=== PATIENT | female | born 1985 | race Caucasian/White ===

== ENCOUNTER 2019-05-01 10:23 | Emergency (ER) | payer MEDICAID ==
[~2019-05-01] VITALS: Ht 162.6 cm; Wt 59.1 kg
[2019-05-01] MEDS ORDERED: HYDROcodone/acetaminophen 10/325mg tab PO ONE (12:20)
[2019-05-01] MEDS ORDERED: ketorolac trometh. 30mg/ml inj. IM ONE (12:50)
[2019-05-01] MEDS ORDERED: NAPR-56 PO (12:59)
[2019-05-01] MEDS ORDERED: CEPH-572 PO (12:59)
[2019-05-01] MEDS ORDERED: DOXY100C2 PO (13:32)
[2019-05-01 13:45] VITALS: BP 106/64
[2019-05-02] MEDS ORDERED: NO HOME MEDS (10:30)
== END 2019-05-01 13:53 | disposition home or self-care (01) ==
LOC: ER 10:24
DX: L03.114 Cellulitis of left upper limb (principal); M25.532 Pain in left wrist; M25.432 Effusion, left wrist; Z79.2 Long term (current) use of antibiotics; Z79.899 Other long term (current) drug therapy; X58.XXXA Exposure to other specified factors, initial encounter; Y93.89 Activity, other specified; Y92.89 Other specified places as the place of occurrence of the external cause; Y99.8 Other external cause status
CPT/HCPCS: 29125; 73110; 93005; 96372; 99283; J1885

== ENCOUNTER 2019-05-02 08:04 | Inpatient (IN) | payer MEDICAID ==
[~2019-05-02] VITALS: Ht 162.6 cm; Wt 59.1 kg
[~2019-05-02 08:04] MED LIST: DOXY100C2 PO; NAPR-56 PO
[2019-05-02] MEDS ORDERED: piperacillin/tazo 3.375gm/50ml 50 ML IV ONE (08:50)
[2019-05-02] MEDS ORDERED: normal saline 1000ML IV soln IV ONE (08:50)
[2019-05-02 09:58] LABS: BASOPHILS % (AUTO) 0.5 % (0-1); EOSINOPHILS % (AUTO) 0.4 % (0-6); HEMATOCRIT 40.2 % (35.0-45.0); HEMOGLOBIN 13.4 g/dl (12.0-16.0); LYMPHOCYTES # (AUTO) 1.8 X10'3 (1.1-4.8); LYMPHOCYTES % (AUTO) 17.8 % (21-51); MEAN CORPUSCULAR HEMOGLOBIN 31.4 PG (27.0-31.0); MEAN CORPUSCULAR HGB CONC 33.4 g/dL (33.0-36.5); MEAN CORPUSCULAR VOLUME 94.2 FL (78-98); MEAN PLATELET VOLUME 6.5 FL (7.4-10.4); MONOCYTES # (AUTO) 0.9 X10'3 (0-0.9); MONOCYTES % (AUTO) 8.8 % (2-12); NEUTROPHILS # (AUTO) 7.4 X10'3 (1.8-7.7); NEUTROPHILS % (AUTO) 72.5 % (42-75); PLATELET COUNT 285 X10'3 (140-440); RED BLOOD COUNT 4.27 X10'6 (4.20-5.60); RED CELL DISTRIBUTION WIDTH 13.3 % (11.5-14.5); WHITE BLOOD COUNT 10.2 X10'3 (4.5-11.0)
[2019-05-02 10:13] LABS: ALANINE AMINOTRANSFERASE 30 U/L (12-78); ALBUMIN 3.1 G/DL (3.4-5.0); ALBUMIN/GLOBULIN RATIO 0.8 (1.1-1.5); ALKALINE PHOSPHATASE 97 IU/L (46-116); ANION GAP 4 (8-16); ASPARTATE AMINO TRANSFERASE 12 U/L (10-37); BILIRUBIN,TOTAL 0.5 MG/DL (0.1-1.0); BLOOD UREA NITROGEN 7 MG/DL (7-18); BUN/CREATININE RATIO 7.1 (6.6-38.0); CALCIUM 8.7 MG/DL (8.5-10.1); CHLORIDE 108 MMOL/L (99-107); CREATININE 0.98 MG/DL (0.40-0.90); GLUCOSE 116 MG/DL (70-104); POTASSIUM 3.7 MMOL/L (3.5-5.1); SODIUM 142 MMOL/L (135-145); TOTAL CARBON DIOXIDE 29.8 MMOL/L (24-32); eGFR 65 ML/MIN
[2019-05-02] MEDS ORDERED: NO HOME MEDS (10:30)
[2019-05-02] MEDS ORDERED: acetaminophen 325mg tablet PO PRN ×2 (11:35)
[2019-05-02] MEDS ORDERED: magnesium hydroxide 30ml (MOM) UD suspension PO PRN (11:35)
[2019-05-02] MEDS ORDERED: ondansetron/PF 4mg/2ml inj IV PRN (11:35)
[2019-05-02] MEDS ORDERED: mag hydrox/Alum hydrox/simeth 30ml oral suspension PO PRN (11:35)
[2019-05-02] MEDS ORDERED: Melatonin 3mg tablet PO PRN (11:35)
[2019-05-02 13:30] VITALS: BP 112/57
[2019-05-02] MEDS: vancomycin inj. 750 MG in normal saline 250ml IV soln 250 ML IV SCH (14:55)
[2019-05-02 18:00] VITALS: BP 108/70
--- NOTE | 2019-05-02 18:30 | NUR ---
Patient in room [facility]TH[facility] 4021. I have received report from MARCOS LAEN and had the opportunity to ask questions and assume patient care.
[2019-05-02] MEDS: ibuprofen tablet 400 MG TABLET PO PRN (21:49)
[2019-05-02 21:50] LABS: URINE HCG NEGATIVE (NEG)
[2019-05-02 21:51] LABS: CLARITY,URINE CLOUDY (Clear); COLOR,URINE YELLOW (Yellow); GLUCOSE, URINE NEGATIVE (Neg); KETONES,URINE NEGATIVE (Neg); LEUKOCYTE ESTERASE ,URINE SMALL (Neg); NITRITES, URINE NEGATIVE (Neg); OCCULT BLOOD,URINE NEGATIVE (Neg); PROTEIN,URINE NEGATIVE (Neg)
[2019-05-02 21:54] LABS: UA COLLECTION TYPE CLN CATCH MIDSTREAM
[2019-05-02 22:00] VITALS: BP 110/71
[2019-05-02 22:11] LABS: BACTERIA,URINE 1+ /HPF (Neg); RBC,URINE NONE SEEN /HPF (0-2); SQUAMOUS EPITHELIAL CELL,UR MODERATE /LPF (FEW)
[2019-05-02 22:20] LABS: AMORPHOUS PHOSPHATES 3+
[2019-05-02 22:21] LABS: YEAST FEW /HPF (NEGATIVE)
[2019-05-03] MEDS: vancomycin inj. 750 MG in normal saline 250ml IV soln 250 ML IV SCH ×2 (01:13→12:47)
--- NOTE | 2019-05-03 06:24 | NUR ---
Problems reprioritized. Patient report given, questions answered & plan of care reviewed with MARCOS TANG.
[2019-05-03 06:41] VITALS: BP 102/62
[2019-05-03 06:51] LABS: BASOPHILS # (AUTO) 0.1 X10'3 (0-0.2); BASOPHILS % (AUTO) 0.9 % (0-1); EOSINOPHILS # (AUTO) 0.1 X10'3 (0-0.9); EOSINOPHILS % (AUTO) 1.2 % (0-6); HEMATOCRIT 38.4 % (35.0-45.0); HEMOGLOBIN 12.8 g/dl (12.0-16.0); LYMPHOCYTES # (AUTO) 2.5 X10'3 (1.1-4.8); MEAN CORPUSCULAR HEMOGLOBIN 31.3 PG (27.0-31.0); MEAN CORPUSCULAR HGB CONC 33.3 g/dL (33.0-36.5); MONOCYTES # (AUTO) 0.7 X10'3 (0-0.9); MONOCYTES % (AUTO) 7.8 % (2-12); NEUTROPHILS # (AUTO) 5.3 X10'3 (1.8-7.7); NEUTROPHILS % (AUTO) 61.1 % (42-75); PLATELET COUNT 283 X10'3 (140-440); RED BLOOD COUNT 4.09 X10'6 (4.20-5.60); RED CELL DISTRIBUTION WIDTH 13.2 % (11.5-14.5); WHITE BLOOD COUNT 8.6 X10'3 (4.5-11.0)
[2019-05-03 06:54] LABS: ALBUMIN 2.7 G/DL (3.4-5.0); ANION GAP 10 (8-16); BLOOD UREA NITROGEN 7 MG/DL (7-18); CALCIUM 8.6 MG/DL (8.5-10.1); CHLORIDE 108 MMOL/L (99-107); CREATININE 0.78 MG/DL (0.40-0.90); GLUCOSE 87 MG/DL (70-104); POTASSIUM 4.2 MMOL/L (3.5-5.1); SODIUM 142 MMOL/L (135-145); TOTAL CARBON DIOXIDE 24.5 MMOL/L (24-32); eGFR 85 ML/MIN
[2019-05-03] MEDS: ibuprofen tablet 400 MG TABLET PO PRN ×2 (08:28→20:11)
[2019-05-03] MEDS: CITALOpram 10mg tablet PO SCH (08:28)
[2019-05-03] MEDS: CefTRIAXone/D5W-Rocephin 1gm 50 ML IV SCH (08:28)
[2019-05-03 14:34] LABS: URINE HCG NEGATIVE (NEG)
[2019-05-03 14:37] LABS: CLARITY,URINE CLOUDY (Clear); COLOR,URINE YELLOW (Yellow); GLUCOSE, URINE NEGATIVE (Neg); KETONES,URINE NEGATIVE (Neg); LEUKOCYTE ESTERASE ,URINE LARGE (Neg); NITRITES, URINE NEGATIVE (Neg); OCCULT BLOOD,URINE TRACE-INTACT (Neg); PH,URINE 6.5 (4.8-8.0); PROTEIN,URINE NEGATIVE (Neg); UROBILINOGEN,URINE 0.2 E.U/dL (0.2-1.0)
[2019-05-03 14:47] LABS: UA COLLECTION TYPE CLN CATCH MIDSTREAM
[2019-05-03 14:53] LABS: BACTERIA,URINE 2+ /HPF (Neg); MUCUS STRANDS MANY /LPF (Neg); RBC,URINE 0-2 /HPF (0-2); SQUAMOUS EPITHELIAL CELL,UR MANY /LPF (FEW); WBC,URINE TNTC /HPF (0-4)
[2019-05-03 18:00] VITALS: BP 115/70
--- NOTE | 2019-05-03 18:30 | NUR ---
Patient in room ORTHO 4021. I have received report from MARCOS TANG and had the opportunity to ask questions and assume patient care.
[2019-05-03] MEDS: lactobacillus rhamnosus 10,000 MMU CELLS/CAPSULE PO SCH (20:09)
[2019-05-03 22:00] VITALS: BP 106/62
[2019-05-04] MEDS: vancomycin inj. 750 MG in normal saline 250ml IV soln 250 ML IV SCH (00:15)
[2019-05-04] MEDS ORDERED: VANCOMYCIN LEVEL IV ONE (00:30)
[2019-05-04 06:10] VITALS: BP 123/62
--- NOTE | 2019-05-04 06:12 | NUR ---
Problems reprioritized. Patient report given, questions answered & plan of care reviewed with MARCOS SANTOS.
--- NOTE | 2019-05-04 06:30 | NUR ---
Patient in room ORTHO 4021. I have received report from Priscila RODRÍGUEZ and had the opportunity to ask questions and assume patient care.
[2019-05-04 07:02] LABS: BASOPHILS # (AUTO) 0.1 X10'3 (0-0.2); BASOPHILS % (AUTO) 1.1 % (0-1); EOSINOPHILS # (AUTO) 0.1 X10'3 (0-0.9); EOSINOPHILS % (AUTO) 1.2 % (0-6); HEMATOCRIT 39.7 % (35.0-45.0); HEMOGLOBIN 13.2 g/dl (12.0-16.0); LYMPHOCYTES # (AUTO) 2.2 X10'3 (1.1-4.8); LYMPHOCYTES % (AUTO) 24.8 % (21-51); MEAN CORPUSCULAR HEMOGLOBIN 31.1 PG (27.0-31.0); MEAN CORPUSCULAR HGB CONC 33.3 g/dL (33.0-36.5); MEAN CORPUSCULAR VOLUME 93.6 FL (78-98); MEAN PLATELET VOLUME 7.1 FL (7.4-10.4); MONOCYTES # (AUTO) 0.6 X10'3 (0-0.9); MONOCYTES % (AUTO) 7.1 % (2-12); NEUTROPHILS # (AUTO) 5.8 X10'3 (1.8-7.7); NEUTROPHILS % (AUTO) 65.8 % (42-75); PLATELET COUNT 289 X10'3 (140-440); RED BLOOD COUNT 4.24 X10'6 (4.20-5.60); RED CELL DISTRIBUTION WIDTH 12.9 % (11.5-14.5); WHITE BLOOD COUNT 8.8 X10'3 (4.5-11.0)
[2019-05-04 07:33] LABS: ALBUMIN 2.7 G/DL (3.4-5.0); ANION GAP 8 (8-16); BLOOD UREA NITROGEN 8 MG/DL (7-18); BUN/CREATININE RATIO 10.8 (6.6-38.0); CALCIUM 8.3 MG/DL (8.5-10.1); CHLORIDE 108 MMOL/L (99-107); CREATININE 0.74 MG/DL (0.40-0.90); GLUCOSE 83 MG/DL (70-104); POTASSIUM 4.1 MMOL/L (3.5-5.1); SODIUM 141 MMOL/L (135-145); TOTAL CARBON DIOXIDE 24.7 MMOL/L (24-32); eGFR 90 ML/MIN
[2019-05-04] MEDS: CefTRIAXone/D5W-Rocephin 1gm 50 ML IV SCH (08:15)
[2019-05-04] MEDS: lactobacillus rhamnosus 10,000 MMU CELLS/CAPSULE PO SCH (08:16)
[2019-05-04] MEDS: CITALOpram 10mg tablet PO SCH (08:16)
[2019-05-04 10:00] VITALS: BP 105/61
--- NOTE | 2019-05-04 10:58 | NUR ---
Patient very sleepy. She did not wake up when hanging her IV fluids. Cintia blanton said she saw her getting in her purse and possibly taking something. Since she is sleeping so soundly I will not give her anything sedating right now. Addendum: 05/04/19 at 1127 by Frida Long RN SORRY WRONG PATIENT, THIS IS NOT A CORRECT NOTE
[2019-05-04] MEDS ORDERED: SULF1TAB49 PO (11:47)
[2019-05-04] MEDS ORDERED: CEPH500C5 PO (11:47)
[2019-05-04] MEDS ORDERED: ESCI5TAB PO (11:47)
[2019-05-04] MEDS ORDERED: VANCOmycin 1250MG/NS 250ml Bag 250 ML IV SCH (13:00)
[2019-05-04] MEDS: ibuprofen tablet 400 MG TABLET PO PRN (13:34)
--- NOTE | 2019-05-04 13:45 | NUR ---
All patient discharge instructions regarding medications provided. Alessandra provided information on outside help for patient. patient discharged and [place]
[2019-05-06] MEDS ORDERED: VANCOMYCIN LEVEL IV ONE (00:30)
== END 2019-05-04 13:45 | disposition home or self-care (01) | DRG 383 ==
LOC: ER 08:05 → ORTHO 4S 12:24 → CMPBEDREQ 19:45
PROVIDERS: ADMIT Hospitalist; ATTEND Hospitalist
DX: L03.114 Cellulitis of left upper limb (principal); F10.11 Alcohol abuse, in remission; F17.200 Nicotine dependence, unspecified, uncomplicated; F15.19 Other stimulant abuse with unspecified stimulant-induced disorder; F32.9 Major depressive disorder, single episode, unspecified; F41.9 Anxiety disorder, unspecified; Z59.0 Homelessness; Z91.5 Personal history of self-harm; Z79.899 Other long term (current) drug therapy
CPT/HCPCS: 36415; 71045; 73090; 80048; 80053; 80202; 81001; 81025; 83605; 83735; 84145; 85025; 87040; 87081; 87088; 93005; 96365; 99285; G0378; J0696; J2543; J3370; J7050

== ENCOUNTER 2019-09-16 19:46 | Emergency (ER) | payer MEDICAID ==
[~2019-09-16 19:46] MED LIST changes: +CEPH500C5 PO; -DOXY100C2 PO; -NAPR-56 PO; +NO HOME MEDS
== END 2019-09-16 20:58 | disposition left against medical advice (07) ==
LOC: ER 19:47
DX: R00.0 Tachycardia, unspecified (principal); Z53.21 Procedure and treatment not carried out due to patient leaving prior to being seen by health care provider
CPT/HCPCS: 93005

== ENCOUNTER 2020-03-18 22:48 | Emergency (ER) | payer MEDICAID ==
[~2020-03-18] VITALS: Ht 162.6 cm; Wt 63.6 kg
[2020-03-18 22:54] VITALS: BP 127/84
[2020-03-18] MEDS ORDERED: proparacaine 0.5% ophthalmic drops 15ml EACHEYE ONE (22:55)
[2020-03-18] MEDS ORDERED: VIG0.5OS LEFTEYE (23:09)
[2020-03-18] MEDS ORDERED: CEPH500C5 PO (23:09)
[2020-03-18] MEDS ORDERED: cephalexin 250mg capsule PO ONE (23:10)
[2020-03-18] MEDS ORDERED: moxifloxacin 0.5% ophthalmic drops 3ml LEFTEYE SCH (23:16)
== END 2020-03-18 23:37 | disposition home or self-care (01) ==
LOC: ER 22:49
DX: H10.32 Unspecified acute conjunctivitis, left eye (principal); F17.200 Nicotine dependence, unspecified, uncomplicated; F15.90 Other stimulant use, unspecified, uncomplicated; Z72.89 Other problems related to lifestyle; Z79.899 Other long term (current) drug therapy
CPT/HCPCS: 99283; 99284

== ENCOUNTER 2021-09-01 01:17 | Emergency (ER) | payer MEDICAID ==
[~2021-09-01] VITALS: Ht 162.6 cm; Wt 61.3 kg
[~2021-09-01 01:17] MED LIST changes: -CEPH500C5 PO
[2021-09-01 01:53] VITALS: BP 148/85
[2021-09-01] MEDS ORDERED: rifampin 300mg capsule PO SCH (04:10)
[2021-09-01] MEDS ORDERED: CefTRIAXone 1000mg IM Kit (w/lidocaine diluent) IM ONE (04:10)
[2021-09-01] MEDS ORDERED: azithromycin 250mg tablet PO ONE (04:10)
[2021-09-01] MEDS ORDERED: PENICILLIN G BENZATHINE 2,400,000 UNIT/4 ML SYRINGE IM ONE (04:10)
[2021-09-01] MEDS ORDERED: DOXY-411 PO (04:11)
[2021-09-01] MEDS ORDERED: RIFA300C4 PO (04:11)
[2021-09-01] MEDS ORDERED: proMETHazine 25mg tablet PO ONE (05:05)
== END 2021-09-01 06:39 | disposition home or self-care (01) ==
LOC: ER 01:17
DX: L03.811 Cellulitis of head [any part, except face] (principal); Z20.822 Contact with and (suspected) exposure to COVID-19; F15.90 Other stimulant use, unspecified, uncomplicated; Z20.2 Contact with and (suspected) exposure to infections with a predominantly sexual mode of transmission; Z72.89 Other problems related to lifestyle; Z79.2 Long term (current) use of antibiotics; Z79.899 Other long term (current) drug therapy
CPT/HCPCS: 36415; 86592; 87491; 87591; 87635; 96372; 99284; C9803; J0561; J0696; Q0169

== ENCOUNTER 2021-09-17 21:28 | Emergency (ER) | payer MEDICAID ==
[~2021-09-17] VITALS: Ht 162.6 cm; Wt 63.6 kg
[~2021-09-17 21:28] MED LIST changes: +RIFA300C4 PO
[2021-09-17 21:40] VITALS: BP 154/91
[2021-09-17 23:28] LABS: URINE HCG NEGATIVE (NEG)
[2021-09-17] MEDS ORDERED: NEOM28.44 TP (23:34)
[2021-09-17] MEDS ORDERED: DOXY100C77 PO (23:34)
== END 2021-09-18 00:15 | disposition home or self-care (01) ==
LOC: ER 21:29
DX: A54.9 Gonococcal infection, unspecified (principal); F15.90 Other stimulant use, unspecified, uncomplicated; Z72.89 Other problems related to lifestyle; Z79.2 Long term (current) use of antibiotics
CPT/HCPCS: 81025; 99282; 99283

== ENCOUNTER 2023-07-08 10:04 | Emergency (ER) | payer SELFPAY ==
[~2023-07-08 10:04] MED LIST changes: +NEOM28.44 TP; -RIFA300C4 PO; +RIFA300C9 PO
== END 2023-07-08 10:22 | disposition left against medical advice (07) ==
LOC: ER 10:04
DX: Z00.8 Encounter for other general examination (principal); Z53.21 Procedure and treatment not carried out due to patient leaving prior to being seen by health care provider

== ENCOUNTER 2023-09-22 17:07 | Emergency (ER) | payer SELFPAY | END 2023-09-22 19:47 | disposition left against medical advice (07) | LOC: ER 17:07 | DX: H57.10 Ocular pain, unspecified eye (principal); Z53.21 Procedure and treatment not carried out due to patient leaving prior to being seen by health care provider ==

== ENCOUNTER 2025-08-29 07:19 | Emergency (ER) | payer MEDICAID ==
[~2025-08-29] VITALS: Ht 162.6 cm; Wt 79.5 kg
[~2025-08-29 07:19] MED LIST changes: +RIFA300C65 PO; -RIFA300C9 PO
[2025-08-29 07:50] VITALS: TEMP 97.8
[2025-08-29 07:55] LABS: MEAN PLATELET VOLUME 8.1 FL (7.4-10.4); RED CELL DISTRIBUTION WIDTH 16.4 % (11.5-14.5)
[2025-08-29 08:34] VITALS: BP 188/124; PULSE 120; RESP 14; O2SAT 100
[2025-08-29] MEDS: OXYTOCIN IM ONE (08:45)
--- NOTE | 2025-08-29 08:50 | Physician Documentation ---
History of Present Illness ~ Chief Complaint: Complications Stated Complaint: ABDOMINAL PAIN Time Seen by MD: 07:47 Primary Medical Doctor: NO PMD HPI 40-year-old female presenting with lower abdominal pain The patient says that today she developed lower abdominal pain. It is crampy and severe, intermittent. About 6 hours ago she was in the shower and she had some fluid, out of her vagina. Since that time she has been having some brownish discharge. The pain has been gradually worsening. She says that she did have a positive test about 9 months ago, but did not think she was actually . No vomiting. No fevers. On arrival, the patient appears to be in active labor Medication Reconciliation Allergies: Coded Allergies: No Known Allergies (Unverified , 03/18/20) Scheduled Neomycn/Baci Zn/Pmyx Bs/Pramox (Triple Antibiotic Plus Ointmnt), 28.4 GM TP BID Rifampin (Rifampin), 1 TAB PO BID Miscellaneous Medications Home Med List (No Home Medications), (Reported) Past Medical History Past Medical History: *INFECTIOUS DZ* Past Surgical History: noncontributory Smoking Status: Unknown if ever smoked Alcohol Use: Occasionally Drug Use: methamphetamine Lives with: Family Lives In: Home Review of Systems Constitutional: Denies: fever Gastrointestinal: Reports: abdominal pain; Denies: vomiting Physical Exam Physical Exam Vital Signs: Temperature: 97.8, Source: Temporal, Heart Rate: 120, Respiratory Rate: 14, BP: 188/124, Pulse Oximetry: 100, Weight: 79.550 Oxygen Flow Rate: 0 Physical Exam General: This is an anxious appearing young female, intermittently clutching her lower abdomen and moaning in pain, boyfriend at bedside HEENT: Atraumatic, oropharynx is moist Heart: Tachycardic, appears regular. She does have significant hypertension Lungs: normal work of breathing, normal oxygen saturation on room air Abdomen: The abdomen is soft and distended. It is suspicious for a gravid abdomen. Bedside ultrasound confirms a , with the head in the pelvis. heart rate around 100-110 on estimation. : Exam was chaperoned by multiple nurses. The patient has a dilated cervix, approximately 5-6 cm with a palpable head. There is brownish discharge from the vagina, minimal bleeding Neuro: Alert and oriented Psychiatric: Anxious and in mild distress Delivery Interventions [place] Suctioned with: bulb syringe Warmed with: blankets, infant warmer Progress Results/Orders Results/Orders Orders - GOGO COTTO MD [facility] - Active Bleeding (08/29/25 07:44) Type And Screen (08/29/25 07:44) Completed Orders - GOGO COTTO MD Cbc/Diff (08/29/25 07:47) Oxytocin Inj. (Pitocin Inj) (08/29/25 08:15) Vital Signs 08/29/25 08/29/25 08/29/25 08/29/25 07:22 07:41 07:50 08:34 Temp 97.8 97.8 Pulse 112 103 120 Resp 18 15 15 14 B/P (MAP) 180/126 196/135 (155) 188/124 (145) Pulse Ox 100 99 100 O2 Flow Rate 0 Laboratory Tests Test 08/29/25 07:45 White Blood Count 15.5 H Red Blood Count 4.74 Hemoglobin 14.3 Hematocrit 42.3 Mean Corpuscular Volume 89.3 Mean Corpuscular Hemoglobin 30.2 Mean Corpuscular Hemoglobin Concent 33.8 Red Cell Distribution Width 16.4 H Platelet Count 335 Mean Platelet Volume 8.1 Neutrophils (%) (Auto) 85.4 H Lymphocytes (%) (Auto) 10.4 L Monocytes (%) (Auto) 3.8 Eosinophils (%) (Auto) 0.1 Basophils (%) (Auto) 0.3 Neutrophils # (Auto) 13.3 H Lymphocytes # (Auto) 1.6 Monocytes # (Auto) 0.6 Eosinophils # (Auto) 0.0 Basophils # (Auto) 0.0 CBC Comment Chemistry Comments Consults/PCP Consults/PCP : Additional Comment Consult: I emergently consulted the OB physician at [facility]. She recommends transfer if there is time, otherwise if the cervix is dilated 8 cm or more we should deliver here. She recommends Pitocin immediately after delivery. Medical Decision Making Additional information obtaine: N/A Findings na Differential Dx:Considerations: Include: Active labor-term, Active labor- , [place] contraction, demise, Placenta previa, Vaginal delivery Additional Comment The patient presents with lower abdominal pain, and is found to be in active labor even though she did know that she was . On initial exam she did have cervical dilatation. We prepared for impending delivery. I did consult Ob at [facility] for recommendations. Initially we considered transporting her for delivery at [facility], but was impending and so we delivered here in the emergency department. Fortunately, the child was burst uneventfully, requiring no significant interventions. The patient was given IM Pitocin. The placenta was then delivered without obvious fracturing, and no significant bleeding. The mother and child we will be transferred to [facility] for admission and furt her treatment. Departure Impression: Primary Impression: Normal vaginal delivery Referrals: NO PRIMARY CARE PROVIDER (PCP) Signature Scribe Signature: [email or web address] Attestation: GOGO Parish MD Aug 29, 2025 08:50
== END 2025-08-29 08:53 ==
LOC: ER 07:20
DX: O80 Encounter for full-term uncomplicated delivery (principal); F15.90 Other stimulant use, unspecified, uncomplicated; Z79.899 Other long term (current) drug therapy; Z72.89 Other problems related to lifestyle; Z3A.32 32 weeks gestation of pregnancy
CPT/HCPCS: 36415; 59409; 85025; 86644; 86870; 86885; 86900; 86901; 86902; 86905; 86945; 96372; 99285; J2590; J7030; 86922